=== PATIENT | female | born 1955 | race Caucasian/White ===

== ENCOUNTER 2023-06-09 14:55 | Emergency (ER) | payer MEDICARE ==
[~2023-06-09] VITALS: Ht 172 cm; Wt 86.2 kg
[2023-06-09 15:18] VITALS: BP_SYST 113; BP_SYST 125; BP_SYST 130; BP_DIAS 67; BP_DIAS 70; BP_DIAS 72
--- NOTE | 2023-06-09 16:00 | ED Cardiac General ---
History of Present Illness General Chief Complaint: Cardiac/General Problems Stated Complaint: ANGINA | Nursing Triage Note: pt presents to [facility] 6 with c/o chest pain that started 4 wks ago, has had 3 episodes-last one yesterday- involving sternal/epigastric pain described as pressure. pt also reports some dizziness the lsat couple days. no current c/o CP during triage. Source: patient Exam Limitations: no limitations History of Present Illness Date Seen by Provider: Jun 09, 2023 Time Seen by Provider: 15:30 Initial Comments Here with a few episodes of intermittent chest pain that is in the epigastric region but also had 1 episode in the upper chest. States the first episode was a couple weeks ago and was central upper chest and occurred at nighttime. She states it was an aching. She did not have any nausea, vomiting, weakness, sweating or breathing problems with any of these episodes. She does have occasional dizziness. States the first episode lasted 15 or 20 minutes and then went away. She has had an episode daily over the past couple of days that are not persistent and again have no other symptoms associated with it. She was talking to her doctor who recommended that she get evaluation and have her heart enzymes checked. She is here for that. She does not have a pest control service technician. She has had a previous stress test without adverse findings but otherwise no other cardiac workup. She does not have significant risk factors currently including no smoking and she has controlled blood pressure with no history of diabetes. She does take 500 mg naproxen daily for her knee pain Timing/Duration: intermittent, gone now, other (3 weeks) Severity: mild Location: substernal, central, epigastric Activities at Onset: none Prior CP/Workup: stress test NTG SL MASK INSPECTOR: No ASA po MASK INSPECTOR: No Associated Systoms: Chest Pain; No Cough, No Diaphoresis, No Fever/Chills, No Nausea/Vomiting, No Shortness of Air, No Weakness Allergies and Home Medications Allergies Coded Allergies: codeine (Verified Allergy, Unknown, 06/09/23) tramadol (Verified Allergy, Unknown, 06/09/23) Patient Home Medication List Home Medication List Reviewed: Yes Review of Systems Review of Systems Constitutional: see HPI; No chills; dizziness; No fever EENTM: No Symptoms Reported Respiratory: No Symptoms Reported Cardiovascular: See HPI Gastrointestinal: See HPI Genitourinary: No Symptoms Reported Musculoskeletal: joint pain (Left knee) Skin: no symptoms reported Past Wsacqjp-Mgxmya-Marcfv Hx Patient Social History Tobacco Use?: No Substance use?: No Alcohol Use?: Yes Alcohol Frequency: Rarely Past Medical History Surgery/Hospitalization HX: thyroid issues, knee surgery Surgeries: Yes Orthopedic Respiratory: Yes Sleep Apnea Cardiac: Yes High Cholesterol, Hypertension Neurological: No Reproductive Disorders: No Psychosocial: Yes Depression Family Medical History Reviewed Nursing Family Hx No Pertinent Family Hx Physical Exam Vital Signs Vital Signs - First Documented 06/09/23 15:13 Temp 36.6 Pulse 65 Resp 18 B/P (MAP) 134/64 (87) Pulse Ox 98 O2 Delivery Room Air Capillary Refill : Less Than 3 Seconds Height, Weight, BMI Height: '" Weight: lbs. oz. kg; 29.00 BMI Method: General Appearance: No Apparent Distress, WD/WN HEENT: PERRL/EOMI, Pharynx Normal Neck: Non Tender, Supple Respiratory: Lungs Clear, Normal Breath Sounds Cardiovascular: Regular Rate, Rhythm, No Murmur Gastrointestinal: Non Tender, Soft Extremity: Normal Range of Motion, Non Tender, No Calf Tenderness Neurologic/Psychiatric: Alert, Oriented x3 Skin: Normal Color, Warm/Dry Progress/Results/Core Measures Results/Orders Lab Results Laboratory Tests Test 06/09/23 15:50 Range/Units White Blood Count 5.1 4.3-11.0 10^3/uL Red Blood Count 4.59 3.80-5.11 10^6/uL Hemoglobin 14.0 11.5-16.0 g/dL Hematocrit 41 35-52 % Mean Corpuscular Volume 90 80-99 fL Mean Corpuscular Hemoglobin 31 25-34 pg Mean Corpuscular Hemoglobin Concent 34 32-36 g/dL Red Cell Distribution Width 11.9 10.0-14.5 % Platelet Count 314 130-400 10^3/uL Mean Platelet Volume 8.8 L 9.0-12.2 fL Immature Granulocyte % (Auto) 0 % Neutrophils (%) (Auto) 53 42-75 % Lymphocytes (%) (Auto) 34 12-44 % Monocytes (%) (Auto) 10 0-12 % Eosinophils (%) (Auto) 2 0-10 % Basophils (%) (Auto) 1 0-10 % Neutrophils # (Auto) 2.7 1.8-7.8 10^3/uL Lymphocytes # (Auto) 1.7 1.0-4.0 10^3/uL Monocytes # (Auto) 0.5 0.0-1.0 10^3/uL Eosinophils # (Auto) 0.1 0.0-0.3 10^3/uL Basophils # (Auto) 0.0 0.0-0.1 10^3/uL Immature Granulocyte # (Auto) 0.0 0.0-0.1 10^3/uL Sodium Level 139 135-145 MMOL/L Potassium Level 4.3 3.6-5.0 MMOL/L Chloride Level 107 98-107 MMOL/L Carbon Dioxide Level 22 21-32 MMOL/L Anion Gap 10 5-14 MMOL/L Blood Urea Nitrogen 21 H 7-18 MG/DL Creatinine 0.80 0.60-1.30 MG/DL Estimat Glomerular Filtration Rate 81 BUN/Creatinine Ratio 26 Glucose Level 89 70-105 MG/DL Calcium Level 9.7 8.5-10.1 MG/DL Corrected Calcium 9.7 8.5-10.1 MG/DL Magnesium Level 2.1 1.6-2.4 MG/DL Total Bilirubin 0.4 0.1-1.0 MG/DL Aspartate Amino Transf (AST/SGOT) 14 5-34 U/L Alanine Aminotransferase (ALT/SGPT) 16 0-55 U/L Alkaline Phosphatase 69 40-136 U/L Myoglobin 33.5 10.0-92.0 NG/ML Troponin I < 0.028 <0.028 NG/ML Total Protein 6.8 6.4-8.2 GM/DL Albumin 4.0 3.2-4.5 GM/DL Lipase 41 8-78 U/L My Orders Orders - ROXY MANN MD Ekg Tracing (06/09/23 15:27) Cbc And Automated Diff (06/09/23 15:46) Magnesium (06/09/23 15:46) Chest 1 View, Ap/Pa Only (06/09/23 15:46) Comprehensive Metabolic Panel (06/09/23 15:46) Myoglobin Serum (06/09/23 15:46) O2 (06/09/23 15:46) Monitor-Rhythm Ecg Trace Only (06/09/23 15:46) Lipid Panel (06/10/23 06:00) Ed Iv/Invasive Line Start (06/09/23 15:46) Lipase (06/09/23 15:46) Troponin I [place] (06/09/23 15:46) Vital Signs/I&O 06/09/23 06/09/23 15:13 15:18 Temp 36.6 Pulse 65 65 69 67 Resp 18 B/P (MAP) 134/64 (87) 130/72 (91) 125/67 (86) 113/70 (84) Pulse Ox 98 O2 Delivery Room Air Blood Pressure Mean: 84 Progress Progress Note : Progress Note Seen and evaluated. We will initiate cardiac workup including CBC, CMP, troponin, myoglobin, lipase as well as get chest x-ray and EKG. Patient has not had pain today and is not currently having pain. No aspirin indicated at this point. Monitor patient. Differential diagnosis includes cardiac event, reflux secondary to naproxen use, musculoskeletal pain 1559: Labs are pending. I have reviewed EKG as noted below and that is nonconcerning. Monitor patient. 1655: Patient has had no pain throughout ED stay. Chest x-ray reviewed by me shows no obvious abnormality on my interpretation. Radiology report reviewed. CBC is grossly normal. CMP is grossly normal. Troponin and myoglobin are negative. No indication of current cardiac event. I did discuss all of this with the patient. She will follow-up with pest control service technician listed or of her choosing and she will follow-up with her primary care doctor. Discharged home with return precautions. Patient verbalized understanding of instructions and agreement with plan. Initial ECG Impression Date: Jun 09, 2023 Initial ECG Impression Time: 15:34 Initial ECG Rate: 65 Initial ECG Rhythm: Normal Sinus Comment Sinus rhythm with normal axis and question of right ventricular conduction delay. No evidence of ST elevation [place]. Interpreted by me. Diagnostic Imaging Diagonstic Imaging: Xray Plain Films/CT/US/NM/MRI: chest Comments [facility], [place] NAME: EUNICE SAGE [facility] REC#: [id number] PT STATUS: REG ER : 1955 PHYSICIAN: ROXY MANN MD ADMIT DATE: 06/09/23/ER Draft Date of Exam:06/09/23 CHEST 1 VIEW, AP/PA ONLY INDICATION: Epigastric pain. EXAMINATION: Portable chest at 03:54 p.m. FINDINGS: Heart size and pulmonary vascularity are normal. Lungs are clear. There are no effusions or pneumothoraces. IMPRESSION: No acute abnormalities in the chest. Dictated on workstation # [id number] Dict: 06/09/23 1619 Trans: 06/09/23 1622 [id number] Interpreted by: ROXY MAURO MD Electronically signed by: Reviewed: Reviewed by Me Departure Impression Primary Impression: Chest pain Qualified Codes: R07.9 - Chest pain, unspecified Disposition: HOME, SELF-CARE Condition: Improved Departure-Patient Inst. Decision time for Depature: 16:57 Referrals: MINDY CUMMINGS MD [facility] DIANE RHOADES MD, STEPHEN R DO (PCP) Primary Care Physician Patient Instructions: Chest Pain (DC) Add. Discharge Instructions: All discharge instructions reviewed with patient and/or family. Voiced understanding. You may initiate nydy-van-pwfgkdt omeprazole and take that once daily for the next 6 weeks. Follow-up with your doctor for recheck and further evaluation. If you are having breakthrough reflux symptoms, you may also take mwuh-xkq-rzeerjl Pepcid or the generic famotidine 20 mg daily. Your Naprosyn may be part of the cause of your pain if this is acid mediated. Talk with your doctor about possibly switching to another medicine that would be more gentle on the stomach. You do need to follow-up with cardiology. You may follow-up with the pest control service technician listed or of your choosing. Call office for appointment for follow-up in the next few weeks. Return for worse pain, fever, vomiting, weakness, breathing problems, dizziness, sweating, chest pain or other concerns as needed. ROXY MANN MD Jun 09, 2023 16:00
[2023-06-09 16:02] LABS: BASOPHILS % (AUTO) 1 % (0-10); EOSINOPHILS # (AUTO) 0.1 10^3/uL (0.0-0.3); EOSINOPHILS % (AUTO) 2 % (0-10); HEMATOCRIT 41 % (35-52); LYMPHOCYTES # (AUTO) 1.7 10^3/uL (1.0-4.0); LYMPHOCYTES % (AUTO) 34 % (12-44); MEAN CORPUSCULAR HEMOGLOBIN 31 pg (25-34); MEAN CORPUSCULAR HGB CONC 34 g/dL (32-36); MEAN CORPUSCULAR VOLUME 90 fL (80-99); MEAN PLATELET VOLUME 8.8 fL (9.0-12.2); MONOCYTES # (AUTO) 0.5 10^3/uL (0.0-1.0); MONOCYTES % (AUTO) 10 % (0-12); NEUTROPHILS # (AUTO) 2.7 10^3/uL (1.8-7.8); NEUTROPHILS % (AUTO) 53 % (42-75); PLATELET COUNT 314 10^3/uL (130-400); WHITE BLOOD COUNT 5.1 10^3/uL (4.3-11.0)
--- NOTE | 2023-06-09 16:23 | Diagnostic Imaging Report ---
INDICATION: Epigastric pain. EXAMINATION: Portable chest at 03:54 p.m. FINDINGS: Heart size and pulmonary vascularity are normal. Lungs are clear. There are no effusions or pneumothoraces. IMPRESSION: No acute abnormalities in the chest. Dictated by: Dictated on workstation # [id number]
[2023-06-09 16:29] LABS: ALANINE AMINOTRANSFERASE 16 U/L (0-55); ALKALINE PHOSPHATASE 69 U/L (40-136); BILIRUBIN,TOTAL 0.4 MG/DL (0.1-1.0); BUN/CREATININE RATIO 26; CALCIUM 9.7 MG/DL (8.5-10.1); CARBON DIOXIDE 22 MMOL/L (21-32); CHLORIDE 107 MMOL/L (98-107); GFR ESTIMATED 81; GLUCOSE 89 MG/DL (70-105); LIPASE 41 U/L (8-78); MAGNESIUM 2.1 MG/DL (1.6-2.4); POTASSIUM 4.3 MMOL/L (3.6-5.0); SODIUM 139 MMOL/L (135-145); TOTAL PROTEIN 6.8 GM/DL (6.4-8.2)
[2023-06-09 17:04] VITALS: BP 135/71
== END 2023-06-09 17:04 | disposition home or self-care (01) ==
LOC: ER 15:00
DX: R07.2 Precordial pain (principal); R10.13 Epigastric pain
CPT/HCPCS: 36415; 71045; 80053; 83690; 83735; 83874; 84484; 85025; 93005; 93041